=== PATIENT | female | born 1995 | race Caucasian/White ===

== ENCOUNTER 2020-04-17 13:39 | Emergency (ER) | payer OTHER, SELFPAY ==
--- NOTE | 2020-04-17 13:42 | ED.GENADULT ---
HPI - General Adult General Chief complaint: Nausea/Vomiting/Diarrhea Stated complaint: dizziness/inablility to stay awake/weakness Time Seen by Provider: 04/17/20 13:42 Source: patient Mode of arrival: ambulatory Limitations: no limitations History of Present Illness HPI narrative: 24-year-old female patient presents to the [facility] with complaints of nausea vomiting and abdominal pain x2 days. Patient states she had [place] food Thursday night and about 3 AM on Thursday morning she started vomiting. Patient states that she vomited most of yesterday as well as felt very nauseated. Patient states she has not been able to eat anything today but has been drinking sugared tea and water. Patient states that her last period was March 24. Denies or breast-feeding at this time. Patient does have a history of gastroparesis. Related Data Home Medications Medication Instructions Recorded Confirmed levonorgestrel [Mirena] 1 device INTRAUTERINE ONCE 04/17/20 04/17/20 Allergies Allergy/AdvReac Type Severity Reaction Status Date / Time No Known Allergies Allergy Verified 04/17/20 14:09 Review of Systems Review of Systems: Narrative: CONSTITUTIONAL: Denies fever, chills, or sweats. EYES: Denies visual changes, redness, or discharge. ENT: Denies rhinorrhea, congestion, sore throat, or otalgia. CARDIOVASCULAR: Denies chest pain, palpitations, or edema. RESPIRATORY: Denies cough or dyspnea. GASTROINTESTINAL: Positive abdominal pain, nausea, vomiting, diarrhea. GENITOURINARY: Denies dysuria or hematuria. SKIN: Denies rash or itching. MUSCULOSKELETAL: Denies back pain, joint pain, or myalgia. NEUROLOGIC: Denies headache, numbness, or weakness. PSYCHIATRIC: Denies anxiety or depression. PMFSH Comments At the time of my signature I agree with nursing past medical history, surgical, social, and family history. There is no relevant family history pertinent to the presenting complaint. Exam Narrative: Exam Narrative: GENERAL: Well-appearing, well-nourished, and in no acute distress. HEAD: Normocephalic, atraumatic. EYES: PERRLA and EOMI. ENT: Nares clear, no rhinorrhea or epistaxis. Mucous membranes moist. NECK: Supple. No lymphadenopathy CHEST: Clear to auscultation. No respiratory distress. HEART: Regular rate and rhythm. No murmur heard. Normal peripheral pulses. ABDOMEN: Soft, flat, nondistended. No guarding, rebound tenderness, or rigid. Patient has tenderness noted to the right lower quadrant on palpation. No pulsatilla masses. Hyperactive bowel sounds present in all four quadrants. No organomegaly. Negative Martin?s sign. No periumbicial tenderness. No Supra public tenderness or distension. Good femoral pulses bilaterally. No hernia noted. No scars or surface trauma. EXTREMITIES: Normal range of motion. No edema. SKIN: Warm, dry, no rash. NEURO: No focal deficits. Alert and oriented x3. Course Vital Signs Vital signs: Vital Signs Temperature 36.7 C 04/17/20 13:47 Pulse Rate 79 04/17/20 13:47 Respiratory Rate 20 04/17/20 13:47 Blood Pressure 140/79 04/17/20 13:47 Pulse Oximetry 100 04/17/20 13:47 Temperature 36.7 C 04/17/20 13:47 Pulse Rate 79 04/17/20 13:47 Respiratory Rate 20 04/17/20 13:47 Blood Pressure 140/79 04/17/20 13:47 Pulse Oximetry 100 04/17/20 13:47 Vital signs reviewed. The patient has been informed that they may have pre-hypertension or Hypertension based on a BP reading in the department. I recommend that the patient call the primary care provider listed on their discharge instructions or a physician of their choice this week to arrange follow up for further evaluation of possible pre-hypertension or Hypertension Transfer Transfered to: [facility] [place] ([place]) Transfer rationale: Right lower quadrant abdominal pain with nausea Accepting physician: PETE Diego Transfer comments: Called and spoke with PETE Roa and gave her report on patient that we are sending claire
[2020-04-17 13:47] VITALS: BP 140/79; PULSE 79; RESP 20; TEMP 36.7; O2SAT 100
== END 2020-04-17 14:12 | disposition short-term general hospital (02) ==
PROVIDERS: Emergency Provider Nurse Practitioner Family
DX: R10.31 Right lower quadrant pain (principal); R11.2 Nausea with vomiting, unspecified; K31.84 Gastroparesis
CPT/HCPCS: 81003; 81025; 99213; G0463

== ENCOUNTER 2020-08-11 15:26 | Emergency (ER) | payer OTHER, SELFPAY ==
--- NOTE | ~2020-08-11 | CT_ITS ---
EXAMINATION: CT abdomen pelvis w con DATE: 08/11/2020 17:32 INDICATION: Left lower quadrant pain. TECHNIQUE: Computed tomography (CT) of the abdomen and pelvis was performed with 100 cc Omnipaque 350 intravenous contrast. The dose-length product was 1167.61 mGy-cm. Automated exposure control and ite rative reconstruction technique were employed. COMPARISON: None. FINDINGS: Lung bases unremarkable. Heart size normal. No significant pleural or pericardial effusion. Status post cholecystectomy. The liver, spleen, pancreas, adrenal glands and kidneys are unremarkabl e. Nonobstructive bowel gas pattern. Normal appendix. Bladder is decompressed. Mildly prominent left ovary. No evidence for diverticulitis. No free air or free fluid. No hydronephrosis. IUD present in t he endometrium. There are spinal fusion changes at L1-L3. Chronic fracture deformity of L2. IMPRESSION: 1. No acute abdominal abnormality. Reviewed, dictated and finalized at location A.
[2020-08-11 15:31] VITALS: BP 118/78; PULSE 98; RESP 16; TEMP 36.6; O2SAT 100
[2020-08-11 16:05] LABS: Basophils Absolute Auto 0.1 K/mm3 (0.0-0.1); Basophils Percent Auto 0.4 % (0.2-1.2); Eosinophils Absolute Auto 0.1 K/mm3 (0-0.3); Eosinophils Percent Auto 0.5 % (0-4.4); Hematocrit 42.5 % (37.0-47.0); Hemoglobin 14.2 g/dL (12.0-15.0); Immature Granulocyte Absolute 0.04 K/mm3 (0.00-0.031); Immature Granulocyte Percent A 0.3 % (0-0.5); Lymphocytes Absolute Auto 2.03 K/mm3 (0.9-3.2); Lymphocytes Percent Auto 15.1 % (18.3-44.2); Mean Corpuscular HGB Conc 33.4 g/dl (32-36); Mean Corpuscular Hemoglobin 30.7 pg (26-34); Mean Platelet Volume 9.2 fl (7.4-10.4); Monocytes Absolute Auto 0.6 K/mm3 (0.1-0.6); Monocytes Percent Auto 4.4 % (2.6-8.5); Neutrophils Absolute Auto 10.6 K/mm3 (1.3-6.7); Neutrophils Percent Auto 79.3 % (45.5-73.1); Platelet Count Result 391 k/mm3 (150-375); Red Blood Count 4.62 M/mm3 (4.2-5.4); Red Cell Distribution Width 13.6 % (11.5-14.5); White Blood Count 13.4 K/mm3 (4.5-10.0)
[2020-08-11 16:14] LABS: Add Urine Microscopic? YES; Appearance Urine Turbid (Clear); Bacteria Urine Trace /hpf; Bilirubin Urine Negative (Negative); Blood Urine 3+ (Negative); Color Urine Yellow (Yellow); Glucose Urine UA Negative (Negative); Ketones Urine Negative (Negative); Leukocyte Esterase Ur 2+ LEU/UL (Negative); Mucus Urine Heavy /lpf; Nitrate Urine Negative (Negative); Protein Urine 2+ mg/dL (Negative); RBC Urine >75 /hpf (0-2); Specific Grav Ur 1.025 (1.001-1.035); Squamous Epithelial Cell Urine Many /hpf (Few); WBC Urine >75 /hpf
[2020-08-11 16:15] LABS: Potassium 3.8 mmol/L (3.4-5.0)
[2020-08-11 16:22] LABS: Alanine Aminotransferase 17 U/L (4-35); Albumin Level 4.3 g/dL (3.5-5.1); Alkaline Phosphatase 72 U/L (38-126); Anion Gap 8 mmol/L (8-16); Aspartate Amino Transferase 22 U/L (14-36); Bilirubin,Total 0.4 mg/dL (0.2-1.3); Blood Urea Nitrogen 10 mg/dL (7-17); Calcium 9.6 mg/dL (8.4-10.2); Carbon Dioxide 24 mmol/L (22-30); Chloride 108 mmol/L (98-107); Estimated CRCL calculation 139 ml/min; Estimated Glomerular Filt Rate > 60; Glucose 109 mg/dL (65-105); Lipase 36 U/L (23-300); Sodium 140 mmol/L (137-145)
--- NOTE | 2020-08-11 16:44 | ED.GENADULT ---
HPI - General Adult General Chief complaint: Abdominal Pain Stated complaint: PELVIC PAIN,CRAMPS Time Seen by Provider: 08/11/20 16:33 Source: patient History of Present Illness HPI narrative: Patient is a 24 y/o female complaining of left lower abdominal pain radiating to her back back staring 2 hours ago. She rates her pain as 5-7/10. She states laying down helps alleviating the pain. She also has some dysuria. Related Data Home Medications Medication Instructions Recorded Confirmed levonorgestrel [Mirena] 1 device INTRAUTERINE ONCE 04/17/20 04/17/20 Allergies Allergy/AdvReac Type Severity Reaction Status Date / Time tramadol Allergy Migraine Verified 08/11/20 16:45 codeine AdvReac Mild Other Verified 08/11/20 16:45 Review of Systems Constitutional: Constitutional: Denies chills, Denies fever(s), Denies headache(s) and Denies weakness Eyes: Eyes: Denies blurry vision ENT: Denies headache(s) and Denies neck pain Cardiovascular: Cardiovascular: Denies chest pain and Denies dyspnea Respiratory: Respiratory: Denies cough and Denies dyspnea Gastrointestinal: Gastrointestinal: Reports abdominal pain, Denies diarrhea, Denies nausea and Denies vomiting Genitourinary: Genitourinary: Denies hematuria and Reports dysuria Musculoskeletal: Musculoskeletal: Denies back pain and Denies neck pain Neurologic: Denies headache(s) and Denies weakness Exam Const: General: no acute distress and well developed Orientation/consciousness: oriented to person, oriented to place, oriented to time and patient oriented x3 HENMT: Head: normocephalic Ears: external ears normal General nose exam: Normal external nose present Eyes: General: appearance normal, both eyes and all related structures Conjunctivae: conjunctivae normal Neck: Neck: normal visual inspection and full ROM Chest: Chest palpation & inspection: normal inspection of the chest and no tenderness Resp: Effort & Inspection: normal respiratory effort Auscultation: clear to auscultation bilaterally Cardio: Rate: regular rate Rhythm: regular rhythm GI: GI Palp: No abdominal tenderness and Yes Soft to palpation Skin: General skin exam: normal color and turgor normal Neuro: General: oriented to person, oriented to place, oriented to time and patient oriented x3 Cognition (Neuro): normal cognition Extrem: General: normal to inspection, full ROM and no pedal edema Psych: Appearance: grossly normal Mental Status: mental status grossly normal Affect: normal affect Course Vital Signs Vital signs: Vital Signs Temperature 36.6 C 08/11/20 15:31 Pulse Rate 98 08/11/20 15:31 Respiratory Rate 16 08/11/20 15:31 Blood Pressure 118/78 08/11/20 15:31 Pulse Oximetry 100 08/11/20 15:31 Temperature 36.6 C 08/11/20 15:31 Pulse Rate 98 08/11/20 15:31 Respiratory Rate 16 08/11/20 15:31 Blood Pressure 118/78 08/11/20 15:31 Pulse Oximetry 100 08/11/20 15:31 Medical Decision Making Vital Signs Vital Signs: Vital Signs Temperature 36.6 C 08/11/20 15:31 Pulse Rate 98 08/11/20 15:31 Respiratory Rate 16 08/11/20 15:31 Blood Pressure 118/78 08/11/20 15:31 Pulse Oximetry 100 08/11/20 15:31 Temperature 36.6 C 08/11/20 15:31 Pulse Rate 98 08/11/20 15:31 Respiratory Rate 16 08/11/20 15:31 Blood Pressure 118/78 08/11/20 15:31 Pulse Oximetry 100 08/11/20 15:31 Lab Data Result diagrams: 08/11/20 15:54 08/11/20 15:54 Labs: Lab Results 08/11/20 08/11/20 08/11/20 Range/Units 15:54 15:54 15:54 WBC 13.4 H (4.5-10.0) K/mm3 RBC 4.62 (4.2-5.4) M/mm3 Hgb 14.2 (12.0-15.0) g/dL Hct 42.5 (37.0-47.0) % MCV 92.0 (80-100) fl MCH 30.7 (26-34) pg MCHC 33.4 (32-36) g/dl RDW 13.6 (11.5-14.5) % Plt Count 391 H (150-375) k/mm3 MPV 9.2 (7.4-10.4) fl Immature Gran % (Auto) 0.3 (0-0.5) % Neut % (Auto) 79.3 H (45.5-73.1) %
--- NOTE | 2020-08-11 16:49 | ED.GENADULT ---
HPI - General Adult General Chief complaint: Abdominal Pain Stated complaint: PELVIC PAIN,CRAMPS Time Seen by Provider: 08/11/20 16:33 Source: patient History of Present Illness HPI narrative: Patient is a 24 y/o female complaining of left lower abdominal pain radiating to back starting 2 hours ago. She rates her pain as 5-7/10. She states that laying down alleviates her pain somewhat. She has some dysuria. She has no fever, vomiting or diarrhea. Related Data Home Medications Medication Instructions Recorded Confirmed levonorgestrel [Mirena] 1 device INTRAUTERINE ONCE 04/17/20 04/17/20 Allergies Allergy/AdvReac Type Severity Reaction Status Date / Time tramadol Allergy Migraine Verified 08/11/20 16:45 codeine AdvReac Mild Other Verified 08/11/20 16:45 Review of Systems Constitutional: Constitutional: Denies chills, Denies fever(s), Denies headache(s) and Denies weakness Eyes: Eyes: Denies blurry vision ENT: Denies headache(s) and Denies neck pain Cardiovascular: Cardiovascular: Denies chest pain and Denies dyspnea Respiratory: Respiratory: Denies cough and Denies dyspnea Gastrointestinal: Gastrointestinal: Reports abdominal pain, Denies diarrhea, Denies nausea and Denies vomiting Genitourinary: Genitourinary: Denies hematuria and Reports dysuria Musculoskeletal: Musculoskeletal: Denies back pain and Denies neck pain Neurologic: Denies headache(s) and Denies weakness Exam Const: General: no acute distress and well developed Orientation/consciousness: oriented to person, oriented to place, oriented to time and patient oriented x3 HENMT: Head: normocephalic Ears: external ears normal General nose exam: Normal external nose present Eyes: General: appearance normal, both eyes and all related structures Conjunctivae: conjunctivae normal Neck: Neck: normal visual inspection and full ROM Chest: Chest palpation & inspection: normal inspection of the chest and no tenderness Resp: Effort & Inspection: normal respiratory effort Auscultation: clear to auscultation bilaterally Cardio: Rate: regular rate Rhythm: regular rhythm GI: GI Palp: No abdominal tenderness and Yes Soft to palpation Skin: General skin exam: normal color and turgor normal Neuro: General: oriented to person, oriented to place, oriented to time and patient oriented x3 Cognition (Neuro): normal cognition Extrem: General: normal to inspection, full ROM and no pedal edema Psych: Appearance: grossly normal Mental Status: mental status grossly normal Affect: normal affect Course Vital Signs Vital signs: Vital Signs Temperature 36.6 C 08/11/20 15:31 Pulse Rate 98 08/11/20 15:31 Respiratory Rate 16 08/11/20 15:31 Blood Pressure 118/78 08/11/20 15:31 Pulse Oximetry 100 08/11/20 15:31 Temperature 36.6 C 08/11/20 17:23 Pulse Rate 70 08/11/20 18:25 Respiratory Rate 18 08/11/20 18:25 Blood Pressure 127/69 08/11/20 18:25 Pulse Oximetry 100 08/11/20 18:25 Medical Decision Making Vital Signs Vital Signs: Vital Signs Temperature 36.6 C 08/11/20 15:31 Pulse Rate 98 08/11/20 15:31 Respiratory Rate 16 08/11/20 15:31 Blood Pressure 118/78 08/11/20 15:31 Pulse Oximetry 100 08/11/20 15:31 Temperature 36.6 C 08/11/20 17:23 Pulse Rate 70 08/11/20 18:25 Respiratory Rate 18 08/11/20 18:25 Blood Pressure 127/69 08/11/20 18:25 Pulse Oximetry 100 08/11/20 18:25 Lab Data Result diagrams: 08/11/20 15:54 08/11/20 15:54 Labs: Lab Results 08/11/20 08/11/20 08/11/20 Range/Units 15:54 15:54 15:54 WBC 13.4 H (4.5-10.0) K/mm3 RBC 4.62 (4.2-5.4) M/mm3 Hgb 14.2 (12.0-15.0) g/dL Hct 42.5 (37.0-47.0) % MCV 92.0 (80-100) fl MCH 30.7 (26-34) pg MCHC 33.4 (32-36) g/dl RDW 13.6 (11.5-14.5) % Plt Count 391 H (150-375) k/mm3 MPV 9.2 (7.4-10.4) fl Immature Gran % (Auto) 0.3 (0-0.5) % Neut
[2020-08-11] MEDS: KETOROLAC 30 MG/ML VIAL (*BKC) IV PUSH (16:53)
[2020-08-11 17:23] VITALS: TEMP 36.6
[2020-08-11 18:25] VITALS: BP 127/69; PULSE 70; RESP 18; O2SAT 100
== END 2020-08-11 18:42 | disposition home or self-care (01) ==
PROVIDERS: Emergency Provider Emergency Medicine
DX: R10.32 Left lower quadrant pain (principal); N39.0 Urinary tract infection, site not specified
CPT/HCPCS: 36415; 74177; 80053; 81001; 81025; 83690; 85025; 87077; 87086; 87088; 87186; 96365; 96375; 99284; J0696; J1885; Q9967

== ENCOUNTER 2021-02-19 09:35 | Emergency (ER) | payer OTHER, SELFPAY ==
--- NOTE | ~2021-02-19 | US_ITS ---
EXAMINATION: US pelvic complete w TV DATE: 02/19/2021 12:24 INDICATION: Pelvic pain. TECHNIQUE: Multiple transabdominal and transvaginal sonographic images of the pelvis were obtained. COMPARISON: CT abdomen and pelvis 08/11/2020 FINDINGS: TRANSABDOMINAL ULTRASOUND: The uterus measures 6.2 x 3.9 x 3.0 cm. There is trace free fluid in the pelvis. TRANSVAGINAL ULTRASOUND: The endometrial complex measures 5 mm in thickness. There is an intrauterine device in expected posit ion. The right ovary is absent. The left ovary measures 3.3 x 3.3 x 2.6 cm. There is vascular flow in left ovary. IMPRESSION: 1. Intrauterine device in expected position. Reviewed, dictated and finalized at location B.
[2021-02-19 09:42] VITALS: BP 125/83; PULSE 93; RESP 18; TEMP 36.7; O2SAT 100
[2021-02-19 10:01] LABS: Basophils Absolute Auto 0.1 K/mm3 (0.0-0.1); Basophils Percent Auto 0.5 % (0.2-1.2); Eosinophils Absolute Auto 0.2 K/mm3 (0-0.3); Eosinophils Percent Auto 1.4 % (0-4.4); Hematocrit 44.1 % (37.0-47.0); Hemoglobin 14.8 g/dL (12.0-15.0); Immature Granulocyte Absolute 0.04 K/mm3 (0.00-0.031); Immature Granulocyte Percent A 0.4 % (0-0.5); Lymphocytes Absolute Auto 2.29 K/mm3 (0.9-3.2); Lymphocytes Percent Auto 20.7 % (18.3-44.2); Mean Corpuscular HGB Conc 33.6 g/dl (32-36); Mean Corpuscular Hemoglobin 31.9 pg (26-34); Monocytes Absolute Auto 0.8 K/mm3 (0.1-0.6); Monocytes Percent Auto 7.2 % (2.6-8.5); Neutrophils Absolute Auto 7.7 K/mm3 (1.3-6.7); Neutrophils Percent Auto 69.8 % (45.5-73.1); Platelet Count Result 340 k/mm3 (150-375); Red Blood Count 4.64 M/mm3 (4.2-5.4); Red Cell Distribution Width 14.1 % (11.5-14.5); White Blood Count 11.1 K/mm3 (4.5-10.0)
[2021-02-19 10:07] LABS: Add Urine Microscopic? YES; Appearance Urine Cloudy (Clear); Bacteria Urine Trace /hpf; Bilirubin Urine Negative (Negative); Blood Urine Negative (Negative); Color Urine Yellow (Yellow); Glucose Urine UA Negative (Negative); Ketones Urine Negative (Negative); Leukocyte Esterase Ur 1+ LEU/UL (Negative); Mucus Urine Rare /lpf; Nitrate Urine Negative (Negative); Protein Urine Negative (Negative); RBC Urine 0-2 /hpf (0-2); Specific Grav Ur 1.019 (1.001-1.035); Squamous Epithelial Cell Urine Many /hpf (Few); Urobilinogen Urine Negative mg/dL (<2.0)
[2021-02-19 10:12] LABS: Alanine Aminotransferase 12 U/L (4-35); Albumin Level 4.3 g/dL (3.5-5.1); Alkaline Phosphatase 83 U/L (38-126); Anion Gap 5 mmol/L (8-16); Aspartate Amino Transferase 19 U/L (14-36); Bilirubin,Total 0.4 mg/dL (0.2-1.3); Blood Urea Nitrogen 10 mg/dL (7-17); Calcium 9.6 mg/dL (8.4-10.2); Carbon Dioxide 25 mmol/L (22-30); Chloride 109 mmol/L (98-107); Estimated CRCL calculation 125 ml/min; Estimated Glomerular Filt Rate > 60; Glucose 99 mg/dL (65-105); Lipase 64 U/L (23-300); Potassium 4.5 mmol/L (3.4-5.0); Sodium 139 mmol/L (137-145)
[2021-02-19] MEDS: HYDROcodone/acetaminophen (*CRX) 5-325 MG TABLET 1 TAB PO (11:36)
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
[2021-02-19] MEDS: cefTRIAXone 1 GM VIAL 0.5 GM IM (12:41)
[2021-02-19] MEDS: WATER, STERILE FOR INJECTION 10 ML VIAL XX (12:53)
[2021-02-19 13:15] VITALS: RESP 16
== END 2021-02-19 13:15 | disposition home or self-care (01) ==
PROVIDERS: Emergency Provider Emergency Medicine
DX: N73.0 Acute parametritis and pelvic cellulitis (principal)
CPT/HCPCS: 36415; 76830; 76856; 80053; 81001; 81025; 83690; 85025; 87070; 87491; 87591; 87808; 96372; 99284; A9270; J0696

== ENCOUNTER 2023-05-15 12:25 | Emergency (ER) | payer OTHER, SELFPAY ==
[2023-05-15 13:04] LABS: Basophils Absolute Auto 0.1 K/mm3 (0.0-0.1); Basophils Percent Auto 0.7 % (0.2-1.2); Eosinophils Absolute Auto 0.2 K/mm3 (0-0.3); Eosinophils Percent Auto 1.7 % (0-4.4); Hematocrit 40.5 % (37.0-47.0); Hemoglobin 13.8 g/dL (12.0-15.0); Immature Granulocyte Absolute 0.09 K/mm3 (0.00-0.031); Lymphocytes Absolute Auto 3.24 K/mm3 (0.9-3.2); Lymphocytes Percent Auto 34.7 % (18.3-44.2); Mean Corpuscular HGB Conc 34.1 g/dl (32-36); Mean Corpuscular Volume 99.8 fl (80-100); Mean Platelet Volume 8.7 fl (7.4-10.4); Monocytes Absolute Auto 0.6 K/mm3 (0.1-0.6); Monocytes Percent Auto 6.2 % (2.6-8.5); Neutrophils Absolute Auto 5.2 K/mm3 (1.3-6.7); Neutrophils Percent Auto 55.7 % (45.5-73.1); Platelet Count Result 327 k/mm3 (150-375); Red Blood Count 4.06 M/mm3 (4.2-5.4); Red Cell Distribution Width 13.9 % (11.5-14.5); White Blood Count 9.4 K/mm3 (4.5-10.0)
[2023-05-15] MEDS: SODIUM CHLORIDE 0.9% IV 1,000 ML 999 ML IV CONT ×2 (13:06→13:41)
[2023-05-15] MEDS: BELLADONNA ALK/PHENOB ELIX 10 ML, MAG HYDROX/ALUMINUM HYD/SIMETH 30 ML, LIDOCAINE HCL 2... PO (13:06)
[2023-05-15] MEDS: ONDANSETRON INJ 4 MG/2 ML VIAL IV PUSH (13:06)
[2023-05-15 13:14] LABS: Alanine Aminotransferase 89 U/L (6-35); Albumin Level 3.8 g/dL (3.5-5.1); Alkaline Phosphatase 89 U/L (38-126); Anion Gap 10 mmol/L (8-16); Aspartate Amino Transferase 147 U/L (14-36); Bilirubin,Total 0.4 mg/dL (0.2-1.3); Blood Urea Nitrogen 3 mg/dL (7-17); Calcium 8.3 mg/dL (8.4-10.2); Carbon Dioxide 24 mmol/L (22-30); Chloride 109 mmol/L (98-107); Estimated CRCL calculation 173 ml/min; Estimated Glomerular Filt Rate > 60; Glucose 102 mg/dL (65-110); Lipase 163 U/L (23-300); Sodium 143 mmol/L (137-145)
[2023-05-15 13:25] LABS: Appearance Urine Cloudy (Clear); Bacteria Urine 4+ /hpf; Bilirubin Urine Negative (Negative); Blood Urine Negative (Negative); Color Urine Yellow (Yellow); Glucose Urine UA Negative (Negative); Ketones Urine Negative (Negative); Leukocyte Esterase Ur 1+ LEU/UL (Negative); Nitrate Urine Positive (Negative); Non Pathogenic Casts 0-2; Protein Urine 2+ mg/dL (Negative); RBC Urine 0-2 /hpf (0-2); Squamous Epithelial Cell Urine Few /hpf (Few); WBC Urine 21-50 /hpf; pH Urine 6.5 (5.0-9.0)
[2023-05-15] MEDS: POTASSIUM CHLORIDE 20 MEQ PACKET (FOR LIQUID) 40 MEQ PO (13:27)
[2023-05-15 13:28] LABS: Add Urine Microscopic? YES
--- NOTE | 2023-05-15 13:45 | PC.NURSE ---
Pt refuses to drink liquid potassium. Pt states, it tastes like salty balls.
--- NOTE | 2023-05-15 14:03 | ED.ABDPAIN ---
HPI - Abdominal Pain General Chief Complaint: Abdominal Pain Stated Complaint: Upper lower abd pain Time Seen by Provider: 05/15/23 12:30 History of Present Illness HPI narrative: 27-year-old female present to the emergency department for evaluation of upper abdominal pain. Patient states he does feel like she is having constipation cramping but denies any constipation. Patient states that she does infrequently smoke marijuana. Patient does report associated nausea and vomiting. Related Data Allergies Allergy/AdvReac Type Severity Reaction Status Date / Time tramadol Allergy Migraine Verified 05/15/23 12:50 codeine AdvReac Mild Other Verified 05/15/23 12:50 Review of Systems Review of Systems: All systems reviewed & are unremarkable except as noted in HPI and below PMFSH Past Medical History Medical History Healthy female adult Surgical History Surgical History History of oophorectomy, unilateral Family History Family History (Updated 03/26/23 @ 10:59 by Teresa Sesay CMA) Mother Carcinoma of colon Cervical cancer Diabetes mellitus Social History Social History (Updated 03/26/23 @ 10:59 by Teresa Sesay CMA) Smoking status: Current every day smoker Tobacco type: cigarettes Alcohol intake: current Substance use: current Substance use type: marijuana Lack of Transportation: No Lack of Food: Never True Current Housing: I Have Housing Concerned About Future Housing: No Difficulty Paying Gas/Electric Bills: No Difficulty Paying for Meds: No Currently Unemployed: YES Education: High School Diploma/GED Difficulty w/ Childcare or Family Care: No Exam Narrative: APPEARANCE: Well appearing, no pain, no distress, well-nourished. HEAD: normocephalic, atraumatic. EYES: PERRLA/EOMI, conjunctivae clear. NOSE: Normal no drainage NECK: Supple. No adenopathy, no masses. RESPIRATORY: Airway patent, respirations nonlabored. Clear to auscultation bilaterally, no rales, rhonchi, wheezing. CARDIOVASCULAR: Regular rate and rhythm without murmurs rubs or gallops. ABDOMINAL: Soft, nondistended, mild upper abdominal tenderness MUSCULOSKELETAL: Moves all extremities. Strength/ROM intact, No edema, No calf tenderness. NEURO: Alert. Cranial nerves II through XII intact. Intact SKIN: Warm, dry. Normal Color Course Course Emergency Course: 27-year-old female presented ED for evaluation of upper abdominal pain. Patient was afebrile with no leukocytosis and a stable hemoglobin. Patient was hypokalemic at 3.0 but patient declined p.o. potassium. UA is concerning for urinary tract infection. Patient was treated with IV Rocephin. Patient initially declined the p.o. potassium but decided to take the p.o. potassium rather than the IV potassium. Patient ultimately eloped prior to completing her medical treatment. MDM - Abdominal Pain Lab Data 05/15/23 12:51 05/15/23 12:51 Labs: Lab Results 05/15/23 Range/Units 12:51 WBC 9.4 (4.5-10.0) K/mm3 RBC 4.06 L (4.2-5.4) M/mm3 Hgb 13.8 (12.0-15.0) g/dL Hct 40.5 (37.0-47.0) % MCV 99.8 (80-100) fl MCH 34.0 (26-34) pg MCHC 34.1 (32-36) g/dl RDW 13.9 (11.5-14.5) % Plt Count 327 (150-375) k/mm3 MPV 8.7 (7.4-10.4) fl Immature Gran % (Auto) 1.0 H (0-0.5) % Neut % (Auto) 55.7 (45.5-73.1) % Lymph % (Auto) 34.7 (18.3-44.2) % [place] % (Auto) 6.2 (2.6-8.5) % Eos % (Auto) 1.7 (0-4.4) % Baso % (Auto) 0.7 (0.2-1.2) % Lymph # (Auto) 3.24 H (0.9-3.2) K/mm3 [place] # (Auto) 0.6 (0.1-0.6) K/mm3 Eos # (Auto) 0.2 (0-0.3) K/mm3 Baso # (Auto) 0.1 (0.0-0.1) K/mm3 Abs Immat Gran (auto) 0.09 H (0.00-0.031) K/mm3 Absolute Neuts (auto) 5.2 (1.3-6.7) K/mm3 Absolute Nucleated RBC 0.0 (0.0-0.012) K/mm3 Nucleated RBC % 0.0 (0.0-0.2) % Sodium 143 (137-145) mmol/L
--- NOTE | 2023-05-15 14:18 | PC.NURSE ---
Pt has decided to drink liquid potassium.
--- NOTE | 2023-05-15 15:15 | PC.NURSE ---
This RN walked into pts room to find the pt not in the room. This RN discovered the pts belongings were not in the room and gown that she was wearing on the bed along with the pts IV that the pt self removed. IV catheter was inspected to be intact. MD and charge nurse notified.
== END 2023-05-15 15:29 | disposition left against medical advice (07) ==
LOC: ANHED 12:47
PROVIDERS: Emergency Provider Emergency Medicine; PCP Family Medicine
DX: N39.0 Urinary tract infection, site not specified (principal); E87.6 Hypokalemia; Z90.721 Acquired absence of ovaries, unilateral; F17.210 Nicotine dependence, cigarettes, uncomplicated
CPT/HCPCS: 36415; 80053; 81001; 81025; 83690; 85025; 87077; 87086; 87186; 96361; 96365; 96375; 99284; A9270; J0696; J1630; J2405; J7030

== ENCOUNTER 2023-07-07 03:02 | Observation (INO) | payer OTHER, SELFPAY ==
[2023-07-07] VITALS (8 sets, daily range): BP systolic 101–143; BP diastolic 61–97; PULSE 70–112; RESP 16–24; TEMP 36.2–36.9; O2SAT 97–100; BMI 37.9
--- NOTE | ~2023-07-07 | CT_ITS ---
EXAMINATION: CT abdomen pelvis wo con DATE: 07/07/2023 05:08 INDICATION: Epigastric abdominal pain. Nausea and vomiting and diarrhea. TECHNIQUE: Computed tomography (CT) of the abdomen and pelvis was performed without intravenous contr ast. Automated exposure control and iterative reconstruction technique were employed. The dose-length product was 1516.98 mGy-cm. COMPARISON: CT abdomen and pelvis 08/11/2020 FINDINGS: The visualized portions of the lung bases are clear without pneumonia or pleural effusion. The heart size is normal. No pericardial effusion. There is diffuse hepatic steatosis. There are guthrie ges of cholecystectomy. The spleen, pancreas, adrenal glands, and kidneys are normal. Contrast in the renal collecting system decreases sensitivity for stones. There are no dilated loops of bowel. The a ppendix is normal. There are no pathologically enlarged lymph nodes. There is no free intraperitoneal fluid. There are changes of posterior fusion procedure from L1 to L3. There is a chronic burst fract ure of L2. There is mild thoracic and lumbar spondylosis. IMPRESSION: 1. Diffuse hepatic steatosis. Reviewed, dictated and finalized at location A.
[2023-07-07] MEDS: SODIUM CHLORIDE 0.9% IV 1,000 ML 999 ML IV CONT ×2 (03:35→05:14)
[2023-07-07 04:01] LABS: Basophils Absolute Auto 0.04 K/mm3 (0.00-0.10); Basophils Percent Auto 0.4 % (0.0-1.0); Hematocrit 42.5 % (35.0-49.0); Hemoglobin 14.2 g/dL (12.0-15.0); Immature Granulocyte Absolute 0.04 K/mm3 (0.00-0.00); Immature Granulocyte Percent A 0.4 % (0.0-0.0); Lymphocytes Absolute Auto 3.34 K/mm3 (1.10-4.50); Mean Corpuscular HGB Conc 33.4 g/dL (32.0-36.0); Mean Corpuscular Volume 98.8 fL (78.0-102.0); Mean Platelet Volume 9.1 fl (9.2-11.8); Monocytes Percent Auto 6.9 % (2.0-11.0); Neutrophils Percent Auto 59.3 % (50.0-70.0); Platelet Count Result 398 K/mm3 (150-420); Red Cell Distribution Width 12.3 % (11.6-14.4); White Blood Count 10.1 K/mm3 (4.8-10.8)
[2023-07-07 04:18] LABS: Alanine Aminotransferase 68 U/L (14-59); Albumin Level 3.9 g/dL (3.4-5.0); Alkaline Phosphatase 76 U/L (46-116); Anion Gap 13 mmol/L (8-16); Aspartate Amino Transferase 46 U/L (15-37); Bilirubin,Total 0.4 mg/dL (0.00-1.00); Blood Urea Nitrogen 3 mg/dL (7-18); Calcium 9.2 mg/dL (8.5-10.1); Carbon Dioxide 23 mmol/L (21-32); Chloride 104 mmol/L (98-108); Estimated CRCL calculation 47 ml/min; Estimated Glomerular Filt Rate 25; Glucose 121 mg/dL (70-99); Lipase 66 U/L (16-77); Osmolality Calculated 287 mOsm/kg (285-295); Potassium 3.1 mmol/L (3.5-5.1); Sodium 140 mmol/L (136-145); Total Protein 7.5 g/dL (6.4-8.2)
[2023-07-07 04:20] LABS: SPREG INTERNAL CONTROL Positive; Serum Qual hCG Negative
--- NOTE | 2023-07-07 04:50 | ED.GENADULT ---
HPI - General Adult General Chief complaint: Nausea/Vomiting/Diarrhea Stated complaint: Seizures History of Present Illness HPI narrative: 27-year-old female presenting with abdominal wall pain and vomiting. Patient states her symptoms have been ongoing for the past few days. She describes her symptoms as mid epigastric abdominal pain with multiple episodes of vomiting and diarrhea. She denies any recent illnesses or trauma. Related Data Home Medications Medication Instructions Recorded Confirmed No Home Medications 07/07/23 07/07/23 Allergies Allergy/AdvReac Type Severity Reaction Status Date / Time tramadol Allergy Migraine Verified 07/07/23 03:40 codeine AdvReac Mild Other Verified 07/07/23 03:40 [facility] Past Medical History Medical History Healthy female adult Surgical History Surgical History History of oophorectomy, unilateral Family History Family History (Updated 03/26/23 @ 10:59 by Teresa Sesay CMA) Mother Carcinoma of colon Cervical cancer Diabetes mellitus Social History Social History (Updated 03/26/23 @ 10:59 by Teresa Sesay CMA) Smoking status: Current every day smoker Tobacco type: cigarettes Alcohol intake: current Substance use: current Substance use type: marijuana Lack of Transportation: No Lack of Food: Never True Current Housing: I Have Housing Concerned About Future Housing: No Difficulty Paying Gas/Electric Bills: No Difficulty Paying for Meds: No Currently Unemployed: YES Education: High School Diploma/GED Difficulty w/ Childcare or Family Care: No Exam Narrative: Tenderness to palpation in all abdominal quadrants. No palpable masses. Negative Martin's. Negative McBurney's. Dry mucosal membranes. All other systems unremarkable and negative. Course Vital Signs Vital signs: Vital Signs Temperature 36.6 C 07/07/23 03:11 Pulse Rate 110 H 07/07/23 03:11 Respiratory Rate 19 07/07/23 03:11 Blood Pressure 143/97 H 07/07/23 03:11 Pulse Oximetry 100 07/07/23 03:11 Oxygen Delivery Room Air 07/07/23 03:11 Temperature 36.9 C 07/07/23 05:39 Pulse Rate 92 07/07/23 05:39 Respiratory Rate 23 H 07/07/23 05:39 Blood Pressure 119/68 07/07/23 05:39 Pulse Oximetry 97 07/07/23 05:39 Oxygen Delivery Room Air 07/07/23 05:39 Medical Decision Making MDM Narrative Medical decision making narrative: Patient with new IDALIA. Most likely prerenal related to fluid losses From vomiting and diarrhea. Unremarkable CT imaging. Patient receiving her 2 L of fluid here. We will start on maintenance fluids at 150 per hour. She will need to be admitted for or continued fluid rehydration and repeat kidney function testing As well as potassium repletion as her potassium was mildly low at 3.1. She is amenable to this plan. Will be admitted observation. Vital Signs Vital Signs: Vital Signs Temperature 36.6 C 07/07/23 03:11 Pulse Rate 110 H 07/07/23 03:11 Respiratory Rate 19 07/07/23 03:11 Blood Pressure 143/97 H 07/07/23 03:11 Pulse Oximetry 100 07/07/23 03:11 Oxygen Delivery Room Air 07/07/23 03:11 Temperature 36.9 C 07/07/23 05:39 Pulse Rate 92 07/07/23 05:39 Respiratory Rate 23 H 07/07/23 05:39 Blood Pressure 119/68 07/07/23 05:39 Pulse Oximetry 97 07/07/23 05:39 Oxygen Delivery Room Air 07/07/23 05:39 Lab Data Lab results reviewed: Yes I reviewed the patient's lab results. 07/07/23 03:58 07/07/23 03:58 Labs: Lab Results 07/07/23 07/07/23 Range/Units 03:58 05:51 WBC 10.1 (4.8-10.8) K/mm3 RBC 4.30 (4.20-5.40) M/mm3 Hgb 14.2 (12.0-15.0) g/dL Hct 42.5 (35.0-49.0) % MCV 98.8 (78.0-102.0) fL MCH 33.0 H (27.0-31.0) pg MCHC 33.4 (32.0-36.0) g/dL RDW 12.3 (11.6-14.4) % Plt Count
[2023-07-07] MEDS: KETOROLAC 30 MG/ML VIAL (*BKC) IV PUSH (05:15)
[2023-07-07] MEDS: METOCLOPRAMIDE HCL INJ 10 MG/2 ML VIAL IV PUSH ×2 (05:15→22:57)
[2023-07-07] MEDS: diphenhydrAMINE HCl INJ 50 MG/ML VIAL IV PUSH (05:16)
--- NOTE | 2023-07-07 06:23 | PC.NURSE ---
cardiac leads replaced as patient continuously moving about on stretcher rolling around and changing position frequently. patient shouting and cursing at IV pump. awaiting results of nasal swab.
[2023-07-07 06:34] LABS: Influenza A QL RT-PCR Negative (Negative); Influenza B QL RT-PCR Negative (Negative); SARS-CoV-2 RNA PCR Negative (Negative)
[2023-07-07 06:35] LABS: RSV RNA, RT-PCR Negative (Negative)
[2023-07-07 06:39] LABS: Appearance Urine Clear (Clear); Bilirubin Urine 1+ (Negative); Blood Urine Negative (Negative); Color Urine Yellow (Yellow); Glucose Urine UA Negative (Negative); Ketones Urine 1+ (Negative); Leukocyte Esterase Ur Negative (Negative); Nitrate Urine Negative (Negative); Protein Urine 1+ (Negative); Specific Grav Ur 1.015 (1.010-1.020); Urobilinogen Urine 0.2 mg/dL (0.2-1.0); pH Urine 6.5 (5.0-8.0)
[2023-07-07 06:44] LABS: Add Urine Microscopic? YES; Bacteria Urine 1+ /hpf; RBC Urine None seen /hpf (0-2); Squamous Epithelial Cell Urine Moderate /hpf (Few); WBC Urine 0-3 /hpf (0-3)
--- NOTE | 2023-07-07 07:11 | PC.NURSE ---
patient report given to GO Nur who is assuming patient care at this time.
[2023-07-07] MEDS: POTASSIUM CHLORIDE 20 MEQ ER TABLET 40 MEQ PO (07:20)
--- NOTE | 2023-07-07 07:35 | PC.NURSE ---
Patient arrived on unit in w/c from ED. Patient able to transfer independently from w/c to bed. Patient educated on use of bed controls, call light, hospital policies, visiting hours and activation of rapid response. Patient voiced understanding.
[2023-07-07] MEDS: SODIUM CHLORIDE 0.9% IV 1,000 ML 150 ML IV CONT (08:07)
--- NOTE | 2023-07-07 09:58 | PM.IMHP ---
H&P: HPI History of Present Illness Date/Time: 07/07/23 13:00 Chief Complaint: abdominal pain, n/v/d Narrative: This is a previously healthy 27-year-old female patient who was admitted to the hospital due to acute kidney injury dehydration related to abdominal pain nausea vomiting. Patient has previously undergone cholecystectomy. Imaging shows only hepatic steatosis. Laboratory assessment was significant for hypokalemia along with serum creatinine of 2.3. Previous baseline creatinine is less than 1. patient reports that nausea and vomiting started 3 days ago where as epigastric abdominal pain only started earlier today. Patient admits marijuana use denies other illicit substances. Patient denies prior episodes pain and vomiting similar to this. She does report having her gallbladder removed in 2016. Patient denies chance of . She reports allergies to tramadol and codeine with headache as the primary reaction. Review of Systems Review of Systems: All systems reviewed & are unremarkable except as noted in HPI and below PMFSH Past Medical History Medical History Healthy female adult Surgical History Surgical History History of oophorectomy, unilateral Family History Family History Mother Carcinoma of colon Cervical cancer Diabetes mellitus Social History Social History Smoking packs per day: 1 Smoking cigarettes per day: 20.0 Years smoked: 18 Smoking pack-years: 18.00 Smoking status: Current every day smoker Tobacco type: cigarettes Second hand tobacco smoke exposure: Yes Alcohol intake: former Substance use: current Substance use type: marijuana Last use: 07/06/2023 Lack of Transportation: YES Lack of Food: Never True Current Housing: I Have Housing Concerned About Future Housing: No Difficulty Paying Gas/Electric Bills: No Difficulty Paying for Meds: No Currently Unemployed: No Education: Associate Degree Difficulty w/ Childcare or Family Care: No Spiritual care concerns: No Meds Home Medications and Allergies Home Medications Medication Instructions Recorded Confirmed Type No Home Medications 07/07/23 07/07/23 History Allergies Allergy/AdvReac Type Severity Reaction Status Date / Time tramadol Allergy Migraine Verified 07/07/23 03:40 codeine AdvReac Mild Other Verified 07/07/23 03:40 Vital Signs Vital Signs - 24 hr 07/07/23 03:11 07/07/23 03:45 07/07/23 04:23 Temperature 36.6 C 36.8 C Pulse Rate 110 H 112 H Respiratory Rate 19 24 H Blood Pressure 143/97 H 142/83 H Pulse Oximetry 100 98 Oxygen Delivery Room Air Room Air Room Air 07/07/23 05:39 07/07/23 06:35 Temperature 36.9 C 36.5 C Pulse Rate 92 Respiratory Rate 23 H Blood Pressure 119/68 Pulse Oximetry 97 Oxygen Delivery Room Air Exam Narrative: GENERAL: obese female writhing in the bed crying in pain with recent emesis HEENT: Pupils are equally round and briskly reactive to light. Extraocular muscles are intact. Oral mucous membranes are moist without lesions. NECK: The patient has no noted JVD. No adenopathy is appreciated. CHEST/LUNGS: Lungs are clear bilaterally without rhonchi, rales, or wheezes. There is no subcutaneous air appreciated. There is no tenderness to the chest wall. HEART: The patient has a regular rate and rhythm. No murmurs, rubs, or gallops are appreciated. Distal pulses are 2+. sinus rhythm on telemetry monitoring rate of 86 by my own interpretation ABDOMEN: The patient's abdomen is obese, soft, epigastric tenderness without guarding or rebound. EXTREMITIES: The patient has no peripheral edema. There is no focal long bone tenderness or deformity. SKIN: The patient's skin is warm and dry, without rashes or
[2023-07-07] MEDS: PANTOPRAZOLE SODIUM IV 40 MG VIAL IV PUSH ×2 (10:10→20:50)
[2023-07-07] MEDS: KETOROLAC 15 MG/ML VIAL (*BKC) IV PUSH (10:11)
[2023-07-07 11:20] LABS: Anion Gap 8 mmol/L (8-16); Blood Urea Nitrogen 3 mg/dL (7-18); Calcium 8.7 mg/dL (8.5-10.1); Carbon Dioxide 24 mmol/L (21-32); Chloride 109 mmol/L (98-108); Estimated CRCL calculation 53 ml/min; Estimated Glomerular Filt Rate 28; Glucose 108 mg/dL (70-99); Osmolality Calculated 289 mOsm/kg (285-295); Potassium 3.8 mmol/L (3.5-5.1); Sodium 141 mmol/L (136-145)
[2023-07-07 11:25] LABS: Magnesium 1.9 mg/dL (1.8-2.4)
[2023-07-07] MEDS: HYDROmorphone HCL INJ (*CRX) 2 MG/ML VIAL 1 MG IV PUSH ×4 (13:39→23:58)
[2023-07-07] MEDS: CAPSAICIN 0.025% CREAM 60 GM TUBE 1 APPLIC TOPICAL ×2 (13:39→23:13)
[2023-07-07] MEDS: HALOPERIDOL LACTATE 5 MG/ML VIAL IV PUSH (13:39)
--- NOTE | 2023-07-07 14:00 | PC.NURSE ---
Canvassing Manager spoke with patient's mother, per patient's request. Patient's mother stated that patient has been huffing duster, and drinking isopropyl alcohol. Canvassing Manager informed REAL ESTATE LEGAL SECRETARY, Pepe as to make informed decisions related to patient's continued care.
[2023-07-07] MEDS: LACTATED RINGERS 1,000 ML 150 ML IV CONT ×2 (14:46→22:10)
[2023-07-08] VITALS: BP 114/71; PULSE 69; PULSE 78; RESP 16; TEMP 36.2; O2SAT 99
[2023-07-08 04:00] VITALS: PULSE 68
[2023-07-08] MEDS: HYDROmorphone HCL INJ (*CRX) 2 MG/ML VIAL 1 MG IV PUSH (05:05)
[2023-07-08 05:17] LABS: Hematocrit 37.7 % (35.0-49.0); Hemoglobin 12.4 g/dL (12.0-15.0); Mean Corpuscular HGB Conc 32.9 g/dL (32.0-36.0); Mean Corpuscular Hemoglobin 33.4 pg (27.0-31.0); Mean Corpuscular Volume 101.6 fL (78.0-102.0); Mean Platelet Volume 9.2 fl (9.2-11.8); Platelet Count Result 286 K/mm3 (150-420); Red Blood Count 3.71 M/mm3 (4.20-5.40); Red Cell Distribution Width 12.4 % (11.6-14.4); White Blood Count 6.2 K/mm3 (4.8-10.8)
[2023-07-08 05:33] LABS: Alanine Aminotransferase 72 U/L (14-59); Albumin Level 3.2 g/dL (3.4-5.0); Alkaline Phosphatase 58 U/L (46-116); Anion Gap 9 mmol/L (8-16); Aspartate Amino Transferase 62 U/L (15-37); Bilirubin,Total 0.3 mg/dL (0.00-1.00); Blood Urea Nitrogen 3 mg/dL (7-18); Calcium 8.7 mg/dL (8.5-10.1); Carbon Dioxide 25 mmol/L (21-32); Chloride 109 mmol/L (98-108); Estimated CRCL calculation 69 ml/min; Estimated Glomerular Filt Rate 39; Glucose 94 mg/dL (70-99); Osmolality Calculated 292 mOsm/kg (285-295); Potassium 3.9 mmol/L (3.5-5.1); Sodium 143 mmol/L (136-145); Total Protein 6.2 g/dL (6.4-8.2)
[2023-07-08 05:34] LABS: Magnesium 1.8 mg/dL (1.8-2.4)
--- NOTE | 2023-07-08 06:30 | PC.NURSE ---
Mitul Goldberg NP, called to get report on patient. She said she would put in orders for patient.
[2023-07-08 08:00] VITALS: BP 155/70; PULSE 82; RESP 14; TEMP 36.6; O2SAT 98
[2023-07-08] MEDS: HYDROcodone/acetaminophen (*CRX) 10-325 MG TABLET 1 TAB PO (08:51)
[2023-07-08] MEDS: diphenhydrAMINE HCl INJ 50 MG/ML VIAL 25 MG IV PUSH (08:53)
[2023-07-08] MEDS: HALOPERIDOL LACTATE 5 MG/ML VIAL IV PUSH (08:54)
[2023-07-08] MEDS: PANTOPRAZOLE SODIUM IV 40 MG VIAL IV PUSH (08:54)
[2023-07-08] MEDS: LACTATED RINGERS 1,000 ML 140 ML IV CONT (10:55)
--- NOTE | 2023-07-08 11:57 | PM.IMPN ---
Progress Note: A&P Assessment and Plan (1) Abdominal pain, vomiting, and diarrhea: Code(s): R10.9 - Unspecified abdominal pain; R11.10 - Vomiting, unspecified; R19.7 - Diarrhea, unspecified Status: Acute Assessment and Plan: epigastric pain 10/ patient writhing in discomfort. Suspect marijuana induced cyclic vomiting syndrome. ordered dilaudid and Haldol as Reglan and Benadryl have been sufficient for nausea and anxiety control. (2) IDALIA (acute kidney injury): Code(s): N17.9 - Acute kidney failure, unspecified Status: Acute Assessment and Plan: Initial serum creatinine 2.3, decreased only to 2.08 after several hours of IV fluids. Patient has received IV ketorolac twice. Discontinued IV ketorolac as creatinine is not dropping quickly. Suspect overuse of NSAIDs as secondary cause of IDALIA with dehydration as primary cause. Improved greatly (3) Cyclical vomiting: Code(s): R11.15 - Cyclical vomiting syndrome unrelated to migraine Status: Acute Assessment and Plan: Ordered Capzasin cream, Haldol and Diaudid. (4) Hypokalemia: Code(s): E87.6 - Hypokalemia Status: Acute Assessment and Plan: initial potassium level 3.1 likely low to GI loss repleted in the emergency department and improved to 3.8 on recheck. Check with daily labs and replace as needed Improved (5) Polysubstance abuse: Code(s): F19.10 - Other psychoactive substance abuse, uncomplicated Status: Acute Assessment and Plan: Patient's mother reports that patient is huffing air duster and that isopropyl alcohol is missing from the home. Patient admits to marijuana use. Plan Admit to Medical floor IV fluids discontinued today Advance diet as tolerated Recheck labs in the morning IV pantoprazole for likely gastritis. IV nausea and pain medication as needed for symptom management Anxiety medication also likely to be needed Patient is able to discharge home today as she is looking better and able to talk with me as she is not needing the haladol at this time. Subjective Date/time seen: 07/08/23 11:57 Interval history: Patient has a history of boardline personality and depression. She left AMA from [facility] on the same day she was admitted. Patient denies any SI/HI and informed me that has never seen a psychiatrist and she does not want to or a counslor reviewing previous records from another hospital this is not true . Patient is in the bed resting adn she has informed me that we have her so drugged that she is not able to stay away. I have already discontinued her Dilaudid prior to my arrival and patient drug screen at other hospital was positive for opiates, Marijuana. Negative preganancy test. Patient complaint is nausea and vomiting but she informs me she feels a lot better. I did have a discussion with patient that if she is picking up marijuan from a dispensery she needs to get the medication that does not have as much stomach affect and she can inform the staff and they will know what she is talking about. Patient is anxious to discharge home today as she states she is feeling better. Exam Narrative: GENERAL: obese female writhing in the bed crying in pain with recent emesis HEENT: Pupils are equally round and briskly reactive to light. Extraocular muscles are intact. Oral mucous membranes are moist without lesions. NECK: The patient has no noted JVD. No adenopathy is appreciated. CHEST/LUNGS: Lungs are clear bilaterally without rhonchi, rales, or wheezes. There is no subcutaneous air appreciated. There is no tenderness to the chest wall. HEART: The patient has a regular rate and rhythm. Distal pulses are 2+. ABDOMEN: The patient's abdomen is obese, soft, epigastric tenderness without guarding or rebound. EXTREMITIES: The patient has no peripheral edema. There is no focal long bone tenderness or deformity. SKIN: The patient's skin is warm and dry, without rashes or lesio
[2023-07-08 12:00] VITALS: PULSE 62
--- NOTE | 2023-07-08 12:48 | PM.DS ---
DS: Admitting Diagnosis Discharge Date 07/08/2023 Admitting Diagnosis Abdominal pain, Gastritis, nausea and vomiting DS: Discharge Diagnosis Discharge Diagnosis (1) Abdominal pain, vomiting, and diarrhea: Code(s): R10.9 - Unspecified abdominal pain; R11.10 - Vomiting, unspecified; R19.7 - Diarrhea, unspecified Status: Acute Assessment and Plan: epigastric pain 07/21 patient writhing in discomfort. Suspect marijuana induced cyclic vomiting syndrome. ordered dilaudid and Haldol as Reglan and Benadryl have been sufficient for nausea and anxiety control. (2) IDALIA (acute kidney injury): Code(s): N17.9 - Acute kidney failure, unspecified Status: Acute Assessment and Plan: Initial serum creatinine 2.3, decreased only to 2.08 after several hours of IV fluids. Patient has received IV ketorolac twice. Discontinued IV ketorolac as creatinine is not dropping quickly. Suspect overuse of NSAIDs as secondary cause of IDALIA with dehydration as primary cause. Improved greatly (3) Cyclical vomiting: Code(s): R11.15 - Cyclical vomiting syndrome unrelated to migraine Status: Acute Assessment and Plan: Ordered Capzasin cream, Haldol and Diaudid. (4) Hypokalemia: Code(s): E87.6 - Hypokalemia Status: Acute Assessment and Plan: initial potassium level 3.1 likely low to GI loss repleted in the emergency department and improved to 3.8 on recheck. Check with daily labs and replace as needed Improved (5) Polysubstance abuse: Code(s): F19.10 - Other psychoactive substance abuse, uncomplicated Status: Acute Assessment and Plan: Patient's mother reports that patient is huffing air duster and that isopropyl alcohol is missing from the home. Patient admits to marijuana use. Plan Admit to Medical floor IV fluids discontinued today Advance diet as tolerated Recheck labs in the morning IV pantoprazole for likely gastritis. IV nausea and pain medication as needed for symptom management Anxiety medication also likely to be needed Patient is able to discharge home today as she is looking better and able to talk with me as she is not needing the haladol at this time. 07/08/2023 Agreed to follow up with [facility] states she is feeling better nausea and vomiting is a lot better per [facility] leary ordered Follow up with dr Casey needs to have labs drawn . Patient wants to get the the hell out of here Denies SI/HI DS: Summary Hospital Course Hospital Course: This is a 27 year old that was admitted with nausea and vomiting Dehydration and withdrawal symptoms. Patient was treated with Haladol , Zofran, Dilaudid for the nausea and vomiting. stomach symptoms have resolved greatly . Review of notes from another Hospital patient was treated and left AMA as she did not want to wait for [facility] to come and evaluate her. Patient IDALIA has improved greatly but is in need of labs to be repeated in the near future. Patient has been made aware and discussed the risk if she doesn't make improvement . I discussed hypertension and informed her that hypertension is high blood pressure which can affect her kidneys, heart lung and ultimately cause renal failure and or up to . Patient states she will follow up and she would like her mother called so she is able to go she is eating and drinking without difficulties and she has remained afebrile. Time Spent with Patient Time attestation: Total time spent providing and/or coordinating discharge services: Exam Narrative: GENERAL: obese female writhing in the bed crying in pain with recent emesis HEENT: Pupils are equally round and briskly reactive to light. Extraocular muscles are intact. Oral mucous membranes are moist without lesions. NECK: The patient has no noted JVD. No adenopathy is appreciated. CHEST/LUNGS: Lungs are clear bilaterally without rhonchi, rales, or wheezes. There is no subcutaneous air appreciated. There is n
--- NOTE | 2023-07-08 14:55 | PC.NURSE ---
Pt discharged to home and self care. Discharge instructions given to pt. Pt instructed regarding new medications, follow up appointments and behavioral health appointments. Pt verbalized understanding of instructions.
== END 2023-07-08 13:50 | disposition home or self-care (01) ==
LOC: CHSED 06:40 → CHS2ND 06:49
PROVIDERS: Nurse Practitioner; Admitting Provider Internal Medicine; Emergency Provider Emergency Medicine; PCP Family Medicine; Visit Provider Internal Medicine
DX: N17.9 Acute kidney failure, unspecified (principal); E87.6 Hypokalemia; R11.15 Cyclical vomiting syndrome unrelated to migraine; K76.0 Fatty (change of) liver, not elsewhere classified; F19.10 Other psychoactive substance abuse, uncomplicated; F12.90 Cannabis use, unspecified, uncomplicated; F17.210 Nicotine dependence, cigarettes, uncomplicated; Z20.822 Contact with and (suspected) exposure to COVID-19; Z90.49 Acquired absence of other specified parts of digestive tract
CPT/HCPCS: 36415; 74176; 80048; 80053; 81001; 83690; 83735; 84703; 85025; 85027; 87637; 96361; 96374; 96375; 96376; 99285; A9270; C9113; G0378; G0379; J1170; J1200; J1630; J1885; J2765; J7030; J7120

== ENCOUNTER 2023-07-08 20:57 | Emergency (ER) | payer OTHER, SELFPAY ==
--- NOTE | 2023-07-08 21:19 | ED.GENADULT ---
HPI - General Adult General Chief complaint: Nausea/Vomiting/Diarrhea Stated complaint: Ambulance Time Seen by Provider: 07/08/23 21:10 Source: patient Mode of arrival: ambulatory Limitations: no limitations History of Present Illness HPI narrative: 27-year-old female with a history of migraine, polysubstance abuse, cyclic vomiting presented with multiple episodes of nausea and vomiting on 07/07/2023 with a BUN /creatinine of 3/2.31 and elevated LFTs. The patient received aggressive hydration with a decrease of BUN/creatinine 3/1.58. the patient was discharged from the hospital this morning. The patient presents to the ER with -- low back pain -- dizziness/ lightheadedness which caused her to fall at [facility]. No injury sustained -- nausea with decreased appetite. Onset (ago): hour(s) ( Started 4 hours ago) Pain Consistency: intermittent Relieving factors: none Exacerbating factors: none Associated symptoms: loss of appetite, malaise, nausea/vomiting and weakness Related Data Allergies Allergy/AdvReac Type Severity Reaction Status Date / Time tramadol Allergy Migraine Verified 07/08/23 21:40 codeine AdvReac Mild Other Verified 07/08/23 21:40 [facility] Past Medical History Medical History Healthy female adult Surgical History Surgical History History of oophorectomy, unilateral Family History Family History Mother Carcinoma of colon Cervical cancer Diabetes mellitus Social History Social History Smoking packs per day: 1 Smoking cigarettes per day: 20.0 Years smoked: 18 Smoking pack-years: 18.00 Smoking status: Current every day smoker Tobacco type: cigarettes Second hand tobacco smoke exposure: Yes Alcohol intake: former Substance use: current Substance use type: marijuana Last use: 07/06/2023 Lack of Transportation: YES Lack of Food: Never True Current Housing: I Have Housing Concerned About Future Housing: No Difficulty Paying Gas/Electric Bills: No Difficulty Paying for Meds: No Currently Unemployed: No Education: Associate Degree Difficulty w/ Childcare or Family Care: No Spiritual care concerns: No Exam Const: General: healthy appearing Nutritional Appearance: well nourished Orientation/consciousness: patient oriented x3 Limitations: no limitations HENMT: Head: normal to inspection Ears: external ears normal Face/Nose/Sinus: Normal external nose present Mouth: Yes Normal oral and palatal mucosa present Throat: posterior oropharynx normal Eyes: Conjunctivae: conjunctivae normal Pupils: Equal, round and reactive pupils present EOM: EOMs intact bilaterally Direct Ophthalmoscopy: no photophobia Neck: Neck: normal visual inspection, no lymphadenopathy and no meningeal signs Chest: Chest palpation & inspection: normal inspection of the chest Resp: Effort & Inspection: normal respiratory effort Auscultation: clear to auscultation bilaterally Cardio: Rate: regular rate Rhythm: regular rhythm GI: GI Palp: Yes Soft to palpation Auscultation: normal bowel sounds : General: Yes no CVA tenderness Back/Spine/Pelvis: Back: no CVA tenderness Skin: General skin exam: normal color Rashes: no rashes Wounds: no wounds Neuro: General: patient oriented x3, moves all extremities, no meningeal signs, no focal motor deficits and CN's II-XI intact bilaterally Cranial nerves: Yes Nystagmus not present Speech: normal speech Gait exam (Neuro): Normal gait present Extrem: General: normal to inspection and no clubbing, cyanosis or edema Psych: Mental Status: mental status grossly normal Affect: Anxious affect present Attitude: cooperative Course Course Emergency Course: low back pain Acute renal failure Vital Signs Vital signs:
[2023-07-08 21:44] LABS: Basophils Absolute Auto 0.04 K/mm3 (0.00-0.10); Basophils Percent Auto 0.6 % (0.0-1.0); Eosinophils Absolute Auto 0.06 K/mm3 (0.02-0.50); Eosinophils Percent Auto 0.9 % (1.0-6.0); Hematocrit 38.9 % (35.0-49.0); Hemoglobin 13.3 g/dL (12.0-15.0); Immature Granulocyte Absolute 0.03 K/mm3 (0.00-0.00); Immature Granulocyte Percent A 0.4 % (0.0-0.0); Lymphocytes Absolute Auto 1.37 K/mm3 (1.10-4.50); Lymphocytes Percent Auto 19.8 % (18.0-42.0); Mean Corpuscular HGB Conc 34.2 g/dL (32.0-36.0); Mean Corpuscular Hemoglobin 34.2 pg (27.0-31.0); Mean Platelet Volume 8.9 fl (9.2-11.8); Monocytes Absolute Auto 0.55 K/mm3 (0.10-0.90); Monocytes Percent Auto 7.9 % (2.0-11.0); Neutrophils Absolute Auto 4.9 K/mm3 (1.7-7.2); Neutrophils Percent Auto 70.4 % (50.0-70.0); Platelet Count Result 286 K/mm3 (150-420); Red Blood Count 3.89 M/mm3 (4.20-5.40); Red Cell Distribution Width 11.9 % (11.6-14.4); White Blood Count 6.9 K/mm3 (4.8-10.8)
[2023-07-08 21:45] LABS: Appearance Urine Clear (Clear); Bilirubin Urine Negative (Negative); Blood Urine Negative (Negative); Color Urine Light Yellow (Yellow); Glucose Urine UA Negative (Negative); Ketones Urine Negative (Negative); Leukocyte Esterase Ur Negative LEU/UL (Negative); Nitrate Urine Negative (Negative); Protein Urine Negative (Negative); Specific Grav Ur <= 1.005 (1.010-1.020); Urobilinogen Urine 0.2 mg/dL (0.2-1.0)
[2023-07-08 21:46] LABS: Add Urine Microscopic? NO
[2023-07-08] MEDS: PROCHLORPERAZINE EDISYLATE 10 MG/2 ML VIAL IV PUSH (21:56)
[2023-07-08] MEDS: LACTATED RINGERS 1,000 ML 999 ML IV CONT (21:57)
[2023-07-08 22:02] VITALS: BP 158/100; PULSE 119; RESP 18; TEMP 36.8; O2SAT 98
[2023-07-08 22:04] LABS: Alanine Aminotransferase 85 U/L (14-59); Albumin Level 3.4 g/dL (3.4-5.0); Alkaline Phosphatase 68 U/L (46-116); Anion Gap 10 mmol/L (8-16); Aspartate Amino Transferase 74 U/L (15-37); Bilirubin,Total 0.3 mg/dL (0.00-1.00); Blood Urea Nitrogen 4 mg/dL (7-18); Calcium 9.3 mg/dL (8.5-10.1); Carbon Dioxide 26 mmol/L (21-32); Chloride 107 mmol/L (98-108); Estimated Glomerular Filt Rate 48; Glucose 99 mg/dL (70-99); Osmolality Calculated 292 mOsm/kg (285-295); Potassium 3.7 mmol/L (3.5-5.1); Sodium 143 mmol/L (136-145); Total Protein 6.7 g/dL (6.4-8.2)
[2023-07-08 22:05] LABS: Lactic Acid Reflex 0.6 mmol/L (0.4-2.0); Troponin I 11.6 ng/L (0.00-60.4)
[2023-07-08] MEDS: MORPHINE SULFATE (*CRX) 2 MG/ML INJ IV PUSH (22:30)
[2023-07-08 23:03] VITALS: BP 134/96; PULSE 87; RESP 18; TEMP 36.7; O2SAT 97
== END 2023-07-08 23:07 | disposition home or self-care (01) ==
PROVIDERS: Emergency Provider Internal Medicine Critical Care Medicine
DX: M54.50 Low back pain, unspecified (principal); N17.9 Acute kidney failure, unspecified; F17.210 Nicotine dependence, cigarettes, uncomplicated
CPT/HCPCS: 36415; 80053; 81003; 83605; 84484; 85025; 96361; 96374; 96375; 99284; J0780; J2270; J7120

== ENCOUNTER 2024-05-06 16:05 | Emergency (ER) | payer OTHER, SELFPAY ==
[2024-05-06 16:28] VITALS: BP 114/94; PULSE 119; RESP 18; TEMP 36.7; O2SAT 99
--- NOTE | 2024-05-06 17:38 | PC.NURSE ---
PD states they are releasing patient and can no longer stay with patient. Patient states she is leaving as well and does not wish to be seen. Patient strongly encouraged to stay to be evaluated by provider, but patient refused and states she will come back if symptoms don't improve. Care coordination and resources offered to patient, but patient states she will figure all of that out. Patient ambulated out of ED with no difficulty and with all belongings.
== END 2024-05-06 19:23 | disposition left against medical advice (07) ==
DX: M54.2 Cervicalgia (principal)
CPT/HCPCS: 99199

== ENCOUNTER 2024-05-29 12:01 | Emergency (ER) | payer OTHER, SELFPAY ==
[2024-05-29 12:19] VITALS: BP 123/81; PULSE 111; RESP 16; TEMP 36.8; O2SAT 100
== END 2024-05-29 13:19 | disposition left against medical advice (07) ==
LOC: EXPBETH 12:06
PROVIDERS: Emergency Provider Nurse Practitioner; PCP Family Medicine
DX: Z53.21 Procedure and treatment not carried out due to patient leaving prior to being seen by health care provider (principal)
CPT/HCPCS: 99199